=== PATIENT | male | born 1990 | race Caucasian/White ===

== ENCOUNTER 2018-01-17 16:35 | Emergency (ER) | payer OTHER ==
[2018-01-17] MEDS ORDERED: LIDOCAINE 1% INJ-PF (10 MG/ML) 30 ML SDV ONE (17:17)
--- NOTE | 2018-01-17 17:28 | ER Document Report ---
ED Wound - General Mode of Arrival: Ambulatory Information source: Patient TRAVEL OUTSIDE OF THE [place] IN LAST 30 DAYS: No <RAVEN HENRY - Last Filed: 01/17/18 18:28> <CARLOS MURRAY - Last Filed: 01/24/18 09:32> - General Chief Complaint: Laceration Stated Complaint: FINGER LACERATION Notes: 27-year-old male that presents to the emergency department today with complaints of a laceration to his right third finger. Patient states he went to an urgent care prior to arrival here and he was sent here because it was "flowing blood". Patient denies any blood squirting. Patient states he cut it on a metal shuttlecock feather trimmer. (RAVEN HENRY) - Related Data Allergies/Adverse Reactions: amoxicillin Allergy (Verified 01/17/18 17:33) Past Medical History - General Information source: Patient - Social History Smoking Status: Never Smoker Cigarette use (# per day): No Frequency of alcohol use: None Drug Abuse: None Lives with: Family Family History: Reviewed & Not Pertinent <RAVEN HENRY - Last Filed: 01/17/18 18:28> Review of Systems - Review of Systems Constitutional: No symptoms reported EENT: No symptoms reported Cardiovascular: No symptoms reported Respiratory: No symptoms reported Gastrointestinal: No symptoms reported Genitourinary: No symptoms reported Male Genitourinary: No symptoms reported Musculoskeletal: No symptoms reported Skin: See HPI, Other - right third digit laceration over finger tip/nail Hematologic/Lymphatic: No symptoms reported Neurological/Psychological: No symptoms reported -: Yes All other systems reviewed and negative <RAVEN HENRY - Last Filed: 01/17/18 18:28> Physical Exam <RAVEN HENRY - Last Filed: 01/17/18 18:28> <CARLOS MURRAY - Last Filed: 01/24/18 09:32> - Vital signs Vitals: Temp Pulse Resp BP Pulse Ox 98.6 F 76 16 124/74 100 01/17/18 16:39 01/17/18 16:39 01/17/18 16:39 01/17/18 16:39 01/17/18 16:39 - Notes Notes: Physical Exam: General: Alert, appears well. HEENT: Normocephalic. Atraumatic. PERRLA. Extraocular movements intact. Oropharynx clear. Neck: Supple. Respiratory: No respiratory distress. Abdominal: Normal Inspection. No distension. Extremities: Moves all four extremities. Neurological: Normal cognition. AAOx4. Normal speech. Psychological: Normal affect. Normal Mood. Skin: see laceration procedure note (RAVEN HENRY) Course <RAVEN HENRY - Last Filed: 01/17/18 18:28> - Diagnostic Test Radiology reviewed: Image reviewed, Reports reviewed <CARLOS MURRAY - Last Filed: 01/24/18 09:32> - Re-evaluation Re-evalutation: 01/17/18 18:54 Patient found to have a tuft fracture with laceration no exposed bone visualized on exam. Will provide 7 days of doxycycline as patient is allergic to amoxicillin. Return precautions were provided regarding any signs of wound infection. Patient is to have his stitches removed in 14 days. He states he is getting on his 's insurance on Friday as they just moved in stated that he should follow-up with his new primary care physician in 14 days or here to have stitches removed. Also discussed using splint for the next 6 weeks due to his tuft fracture. Also discussed being able to valentin tape his finger 1 stitches removed in 2 weeks (CARLOS MURRAY) - Vital Signs Vital signs: Temp Pulse Resp BP Pulse Ox 97.6 F 70 16 119/89 H 100 01/17/18 19:04 01/17/18 19:04 01/17/18 19:04 01/17/18 19:04 01/17/18 19:04 Procedures <RAVEN HENRY - Last Filed: 01/17/18 18:28> - Laceration/Wound Repair Right Finger 3rd digit Wound length (cm): 1.5 Wound's Depth, Shape: Irregular Laceration pre-procedure: Chloraprep applied Anesthetic type: 1% Lidocaine Volume Anesthetic (mLs): 10 Wound explored: Clean, No foreign body removed Wound Debrided: Minimal Wound Repaired With: Sutures Suture Size/Type: 4:0, Prolene Number of Sutures: 4 Layer Closure?: No Post-procedure wound care: Sterile dressing applied Post-procedure NV exam normal: Yes Complications: No - Minor lateral nail avulsion ~1mm wide, medial apsect <CARLOS MURRAY - Last Filed: 01/24/18 09:32> - Laceration/Wound Repair Right Finger 3rd digit Notes: 01/17/18 18:46 Patient had small medial approximately 1 mm wide sliver of nail that had avulsed which was removed with surgical scissors. Nail and germinal matrix appear intact was not able to shelf nail. Neurologically intact good brisk capillary refill patient tolerated procedure well. X-ray showed tuft fracture but on exam that was not palpated or visualized 01/17/18 18:48 (CARLOS MURRAY) Discharge <RAVEN HENRY - Last Filed: 01/17/18 18:28> <CARLOS MURRAY - Last Filed: 01/24/18 09:32> - Discharge Clinical Impression: Tuft fracture of 3rd digit, Right hand Finger laceration Qualifiers: Encounter type: initial encounter Finger: middle finger Damage to nail status: with damage Foreign body presence: without foreign body Laterality: right Qualified Code(s): S61.312A - Laceration without foreign body of right middle finger with damage to nail, initial encounter Condition: Good Disposition: HOME, SELF-CARE Instructions: Laceration Care (OM), Tuft Fracture of the Finger (OM) Additional Instructions: Please take all medications as prescribed. Please wear splint provided for 6 weeks. Please have wound rechecked in 2 weeks and have stitches removed at that time. Please seek medical care if any signs or symptoms of infection we discussed. Prescriptions: Doxycycline Hyclate 100 mg PO BID #14 capsule Scribe Attestation: 01/24/18 09:32 I personally performed the services described in the documentation, reviewed and edited the documentation which was dictated to the scribe in my presence, and it accurately records my words and actions. (CARLOS MURRAY) Scribe Documentation - Scribe Written by Domingo:: Domingo Mott, 01/17/2018 1823 acting as scribe for :: Ainsley <RAVEN HENRY - Last Filed: 01/17/18 18:28>
--- NOTE | 2018-01-17 18:37 | RADIOLOGY REPORT (SQ) ---
EXAM DESCRIPTION: FINGER RIGHT COMPLETED DATE/TIME: 01/17/2018 6:24 pm REASON FOR STUDY: 3rd digit, cut with cleaner and trimmer COMPARISON: None. NUMBER OF VIEWS: Three views. TECHNIQUE: AP, lateral, and oblique images acquired of the right third finger. LIMITATIONS: None. FINDINGS: MINERALIZATION: Normal. BONES: Tuft fracture of the 3rd digit distal phalanx. Osseous mineralization and alignment are other vale normal. SOFT TISSUES: No soft tissue swelling. No foreign body. OTHER: No other significant finding. IMPRESSION: No retained radiopaque foreign body. Tuft fracture of the 3rd digit distal phalanx. COMMENT: SITE OF TRAUMA/COMPLAINT MARKED/STAMP COMPLETED: Yes TECHNICAL DOCUMENTATION: JOB ID: [id number] [employer]- All Rights Reserved Reading location - IP/workstation name: [email or web address]
[2018-01-17] MEDS ORDERED: DOXYCYCLINE HYCLATE 100 MG TABLET PO ONE (18:56)
[2018-01-17] MEDS ORDERED: IBUPROFEN 800 MG TABLET PO ONE (18:56)
[2018-01-17 19:06] VITALS: BP 119/89
== END 2018-01-17 19:19 | disposition home or self-care (01) ==
LOC: ER 16:35
DX: S62.632A Displaced fracture of distal phalanx of right middle finger, initial encounter for closed fracture (principal); S61.312A Laceration without foreign body of right middle finger with damage to nail, initial encounter; W29.3XXA Contact with powered garden and outdoor hand tools and machinery, initial encounter; Y93.H2 Activity, gardening and landscaping; Z88.0 Allergy status to penicillin
CPT/HCPCS: 99283